=== PATIENT | female | born 1990 | race Caucasian/White ===

== ENCOUNTER 2018-05-30 17:34 | Emergency (ER) | payer MEDICAID ==
[~2018-05-30] VITALS: Ht 162.6 cm; Wt 98.4 kg
[2018-05-30 17:56] LABS: URINE BILIRUBIN NEGATIVE (Negative); URINE BLOOD NEGATIVE (Negative); URINE CLARITY CLEAR; URINE COLOR YELLOW; URINE GLUCOSE-RANDOM NEGATIVE (Negative); URINE KETONES NEGATIVE (Negative); URINE LEUKOCYTES-REFLEX NEGATIVE (Negative); URINE NITRITE-REFLEX NEGATIVE (Negative); URINE PROTEIN NEGATIVE (Negative); URINE SPECIFIC GRAVITY 1.015 (1.005-1.030); URINE UROBILINOGEN 0.2 E.U./dl (0.2-1.0)
[2018-05-30 18:12] LABS: INFLUENZA A ANTIGEN None Detected (None Detect); INFLUENZA B ANTIGEN None Detected (None Detect)
[2018-05-30 18:26] LABS: ABSOLUTE BASOPHILS 0.1 thou/uL (0.0-0.2); ABSOLUTE EOSINOPHILS 0.1 thou/uL (0.0-0.7); ABSOLUTE LYMPHOCYTES 2.8 thou/uL (0.8-5.3); ABSOLUTE MONOCYTES 0.5 thou/uL (0.0-1.2); BASOPHILS 0.8 %; EOSINOPHILS 0.8 %; HEMATOCRIT 38.7 % (37.0-47.0); LYMPHOCYTES 37.5 %; MCH 29.5 pg (26.0-34.0); MCHC 33.7 g/dL (28.0-37.0); MCV 87.7 fL (80.0-100.0); MONOCYTES 6.7 %; MPV 8.5 fl. (7.2-11.1); NUCLEATED RBCS 0 /100WBC; PLATELET COUNT* 211 thou/uL (150-400); POLYS 54.2 %; RBC 4.42 mil/uL (4.20-5.00); RDW-CV 13.4 % (10.5-14.5); WBC 7.5 thou/uL (4.0-11.0)
[2018-05-30 18:33] LABS: CALCIUM 8.9 mg/dL (8.5-10.1); POTASSIUM 3.5 mmol/L (3.5-5.1)
[2018-05-30 18:37] LABS: ALBUMIN 3.6 g/dL (3.4-5.0); TOTAL BILIRUBIN 0.3 mg/dL (<0.1-1.0); TOTAL PROTEIN 7.3 g/dL (6.4-8.2)
[2018-05-30 19:59] VITALS: BP 126/77
== END 2018-05-30 20:00 | disposition home or self-care (01) ==
LOC: M.ERS 17:34
PROVIDERS: Nurse Practitioner Family
DX: R50.9 Fever, unspecified (principal); M54.5 Low back pain; K21.9 Gastro-esophageal reflux disease without esophagitis; Z88.1 Allergy status to other antibiotic agents

== ENCOUNTER 2020-12-12 00:19 | Emergency (ER) | payer OTHER ==
[~2020-12-12] VITALS: Ht 165.1 cm; Wt 85.7 kg
[2020-12-12] MEDS ORDERED: OMEPRAZOLE 20 M20 M1 PO (00:23)
[2020-12-12] MEDS ORDERED: XANAX 0.5 MG0.5 M1 PO (00:23)
[2020-12-12 00:59] LABS: HEMATOCRIT 40.7 % (37.0-47.0); HEMOGLOBIN 14.1 gm/dL (12.0-15.0); MCH 30.3 pg (26.0-34.0); MCHC 34.8 g/dL (28.0-37.0); MCV 87.2 fL (80.0-100.0); MPV 8.5 fl. (7.2-11.1); NUCLEATED RBCS 0 /100WBC; PLATELET COUNT* 314 thou/uL (150-400); RBC 4.67 mil/uL (4.20-5.00); RDW-CV 13.1 % (10.5-14.5); WBC 12.1 thou/uL (4.0-11.0)
[2020-12-12 01:03] LABS: CALCIUM 9.5 mg/dL (8.5-10.1); CREATININE 1.1 mg/dL (0.6-1.3); POTASSIUM 3.8 mmol/L (3.5-5.1)
[2020-12-12 01:07] LABS: APTT 23.9 Seconds (25.0-31.3); INR 1.1; PROTIME 11.2 Seconds (9.20-11.50)
[2020-12-12 01:08] LABS: ALBUMIN 4.6 g/dL (3.4-5.0); TOTAL BILIRUBIN 0.8 mg/dL (<0.1-1.0); TOTAL PROTEIN 8.8 g/dL (6.4-8.2)
[2020-12-12 02:28] LABS: ABSOLUTE LYMPHOCYTES 1.2 thou/uL (0.8-5.3); ABSOLUTE MONOCYTES 0.2 thou/uL (0.0-1.2); ABSOLUTE NEUTROPHILS 10.6 thou/uL (1.6-8.1)
[2020-12-12 02:29] LABS: PLATELET ESTIMATE ADEQUATE
[2020-12-12] MEDS ORDERED: CARAFATE 1 GM TA1 GM PO ×2 (02:48→02:50)
[2020-12-12] MEDS ORDERED: OMEPRAZOLE40 MG PO ×2 (02:48→02:50)
[2020-12-12 03:34] VITALS: BP 120/79
--- NOTE | 2020-12-12 11:35 | EKG ---
[place] [address] ELECTROCARDIOGRAM REPORT Name: JOSE ALFREDO HINKLE Room: [facility]#: [id number] Admission: 12/12/20 Attend Phys: Discharge: 12/12/20 Date of : 88 Date of Service: 12/12/20 0019 Report #: [id number] THIS REPORT FOR: //name// [facility] ED Test Date: 2020-12-12 Test Time: 00:19:31 Pat Name: JOSE ALFREDO HINKLE Department: Room: Gender: Manager Office Services: [facility] : 1990 Requested By: Julianna Campos Order Number: [id number] MD: Otoniel Haywood Measurements Intervals [place] Rate: 126 P: 68 [place]: 122 QRS: 63 QRSD: 84 T: 5 QT: 301 QTc: 436 Interpretive Statements Sinus tachycardia Probable left atrial enlargement Minimal ST depression, inferior leads No previous ECG available for comparison Electronically Signed On 12-12-2020 11:35:32 CDT by Otoniel Haywood [email or web address] <ELECTRONICALLY SIGNED> By: Otoniel Haywood MD, [facility] 12/12/20 1135 0019 0019 Otoniel Haywood MD, FAC /EPI
== END 2020-12-12 03:37 | disposition home or self-care (01) ==
LOC: M.ERS 00:19
PROVIDERS: Personal Emergency Response Attendant
DX: R10.13 Epigastric pain (principal); F41.9 Anxiety disorder, unspecified; K21.9 Gastro-esophageal reflux disease without esophagitis; Z79.899 Other long term (current) drug therapy; Z88.1 Allergy status to other antibiotic agents